=== PATIENT | male | born 1965 | race Caucasian/White ===

== ENCOUNTER → 2025-02-20 06:39 | Outpatient (REF) | payer OTHER, SELFPAY | LOC: MRI 3T 06:39 | PROVIDERS: ATTENDING PHYSICIAN Psychiatry & Neurology Neurology; FAMILY PHYSICIAN Family Medicine | DX: G45.0 Vertebro-basilar artery syndrome (principal) | CPT/HCPCS: 70544; 70547 ==

== ENCOUNTER → 2025-02-20 14:44 | Outpatient (REF) | payer OTHER, SELFPAY | LOC: HWRAD 14:44 | PROVIDERS: ATTENDING PHYSICIAN Physician Assistant Medical; FAMILY PHYSICIAN Family Medicine | DX: R10.84 Generalized abdominal pain (principal) | CPT/HCPCS: 76700 ==